=== PATIENT | male | born 1955 | race African-American/Black ===

== ENCOUNTER 2018-02-09 14:38 | Emergency (ER) | payer OTHER ==
[~2018-02-09] VITALS: Ht 165.1 cm; Wt 72.6 kg
[2018-02-09] MEDS ORDERED: UNOBMED (14:49)
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
[2018-02-09] MEDS ORDERED: Acetaminophen 500mg (ES) tab PO ONE (15:15)
[2018-02-09 15:20] VITALS: BP 163/96
--- NOTE | 2018-02-09 15:57 | Diagnostic Imaging Report ---
EXAM: XR Chest, 2 Views CLINICAL HISTORY: PAIN TECHNIQUE: Frontal and lateral views of the chest. COMPARISON: No relevant prior studies available. FINDINGS: Lungs: Increased interstitial markings. The lungs are otherwise clear without focal consolidation. Pleural space: Unremarkable. The costophrenic angle are sharp. No visible pneumothorax. Heart: Unremarkable. No cardiomegaly. Mediastinum: Unremarkable. Bones/joints: Mild degenerative changes throughout the visualized spine. IMPRESSION: Increased interstitial markings. This may be related to mild pulmonary vascular congestion versus viral/interstitial pneumonitis.
--- NOTE | 2018-02-09 15:58 | Diagnostic Imaging Report ---
EXAM: XR Thoracic Spine, 3 Views CLINICAL HISTORY: PAIN TECHNIQUE: Frontal, lateral and swimmer's views of the thoracic spine. COMPARISON: No relevant prior studies available. FINDINGS: Vertebrae: Unremarkable. Thoracic vertebral body heights are preserved. No visible fracture. Normal alignment. Disc spaces: Mild degenerative disc space loss and endplate osteophytes in the mid to lower thoracic spine. Soft tissues: Unremarkable. IMPRESSION: Mild degenerative changes in the mid to lower thoracic spine.
[2018-02-09 16:40] VITALS: BP 175/110
[2018-02-09] MEDS ORDERED: TYLENOL EXTRA500 MG ORAL (16:47)
[2018-02-09 16:49] VITALS: BP 175/110
--- NOTE | 2018-02-09 17:54 | Diagnostic Imaging Report ---
EXAM: XR Right Ribs, 4 Views CLINICAL HISTORY: PAIN TECHNIQUE: Frontal and oblique views of the right ribs. COMPARISON: No relevant prior studies available. FINDINGS: Lungs: The visualized right lung appears clear. No confluent pulmonary opacities. Pleural space: Unremarkable. No visible pneumothorax. Bones/joints: Unremarkable. No displaced rib fracture identified. IMPRESSION: No displaced right rib fractures identified. If there is continued clinical concern, follow-up radiographs, CT, or nuclear medicine bone scan may be considered.
--- NOTE | 2018-02-11 23:16 | Cardiology Report ---
APPROVED REPORT EKG Measurement Heart [id number] Normal sinus rhythm Normal ECG
== END 2018-02-09 16:53 | disposition home or self-care (01) ==
LOC: EMR 15:09
DX: S29.9XXA Unspecified injury of thorax, initial encounter (principal); Y09 Assault by unspecified means; Y92.9 Unspecified place or not applicable; I10 Essential (primary) hypertension; F17.200 Nicotine dependence, unspecified, uncomplicated; R25.1 Tremor, unspecified
CPT/HCPCS: 71046; 72070; 93005; 99284